=== PATIENT | female | born 1990 | race Caucasian/White ===

== ENCOUNTER 2017-03-14 10:19 | Emergency (ER) | payer MEDICAID ==
[~2017-03-14] VITALS: Ht 165.1 cm; Wt 56.7 kg
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
[2017-03-14] MEDS ORDERED: IBUPROFEN 600 MG TABLET PO ONE ×2 (11:00→11:04)
[2017-03-14] MEDS ORDERED: ACETAMINOPHEN ES 500 MG TABLET PO ONE (11:00)
[2017-03-14] MEDS ORDERED: ACETAMINOPHEN ES 500 MG TABLET ONE (11:03)
--- NOTE | 2017-03-14 11:45 | NUR ---
PT BACK FROM CT SCAN
[2017-03-14 12:15] VITALS: BP 100/66
--- NOTE | 2017-03-14 12:15 | NUR ---
Patient discharged to home in stable condition. Written and verbal after care instructions given. Patient verbalizes understanding of instruction.
== END 2017-03-14 12:16 | disposition home or self-care (01) ==
LOC: ER 10:20
DX: S16.1XXA Strain of muscle, fascia and tendon at neck level, initial encounter (principal); V43.52XA Car driver injured in collision with other type car in traffic accident, initial encounter; Y93.89 Activity, other specified; Y92.89 Other specified places as the place of occurrence of the external cause; Y99.9 Unspecified external cause status
CPT/HCPCS: 71010-TC; 72050-TC; 84703-TC; A4606; Z7610

== ENCOUNTER 2017-09-27 08:41 | Emergency (ER) | payer MEDICAID ==
[~2017-09-27] VITALS: Ht 165.1 cm; Wt 56.7 kg
[2017-09-27 08:52] VITALS: BP 98/66
== END 2017-09-27 09:22 | disposition home or self-care (01) ==
LOC: ER 08:44
DX: O99.511 Diseases of the respiratory system complicating pregnancy, first trimester (principal); J40 Bronchitis, not specified as acute or chronic; Z3A.01 Less than 8 weeks gestation of pregnancy
CPT/HCPCS: 99283; A4606; Z7610